=== PATIENT | female | born 1990 | race Caucasian/White ===

== ENCOUNTER 2022-07-15 10:02 | Emergency (ER) | payer MEDICAID ==
[~2022-07-15] VITALS: Ht 162.6 cm; Wt 95.3 kg
[2022-07-15 10:05] VITALS: BP_SYST 116
--- NOTE | 2022-07-15 10:10 | NUR ---
Patient triaged and placed in waiting room. VSS and patient appears in no acute distress at this time. Accompanied by SELF, awaiting available bed, and MD notified of need for MSE.
--- NOTE | 2022-07-15 11:24 | NUR ---
DR CRAVEN OUT TO TRIAGE ROOM FOR EVALUATION
[2022-07-15 11:59] LABS: BASOPHILS # (AUTO) 0.1 K/uL (0.0-0.2); EOSINOPHILS # (AUTO) 0.3 K/uL (0.0-0.4); EOSINOPHILS % (AUTO) 3.1 % (0.0-4.0); HEMATOCRIT 37.5 % (36-48); LYMPHOCYTES # (AUTO) 2.5 K/uL (1.0-5.5); LYMPHOCYTES % (AUTO) 29.4 % (20.5-51.5); MEAN CORPUSCULAR HEMOGLOBIN 25 pg (27-31); MEAN CORPUSCULAR HGB CONC 32 % (32-36); MEAN CORPUSCULAR VOLUME 77 fL (79.0-98.0); MONOCYTES # (AUTO) 0.5 K/uL (0.0-1.0); MONOCYTES % (AUTO) 6.4 % (1.7-9.3); NEUTROPHILS # (AUTO) 5.1 K/uL (1.8-7.7); NEUTROPHILS % (AUTO) 60.1 % (40.0-70.0); PLATELET COUNT (AUTO) 319 K/uL (130-430); RED BLOOD CELL COUNT(AUTO) 4.87 MIL/uL (4.2-6.2); RED CELL DISTRIBUTION WIDTH 16.1 % (9.0-15.0); WHITE BLOOD COUNT (AUTO) 8.6 K/uL (4.8-10.8)
[2022-07-15 12:21] LABS: ANION GAP 8 (5-15); CALCIUM 8.4 mg/dL (8.4-11.0); CHLORIDE 100 mmol/L (98-107); CREATININE 0.82 mg/dL (0.55-1.30); GLUCOSE 90 mg/dL (70-99); UREA NITROGEN, BLOOD 12 mg/dL (8-21)
[2022-07-15 12:24] LABS: GFR AFRICAN AMERICAN 103 mL/min (>90)
[2022-07-15 12:28] LABS: ALANINE AMINOTRANSFERASE 12 U/L (12-78); ALBUMIN 3.3 g/dL (3.4-4.8); ASPARTATE AMINOTRANSFERASE 17 U/L (10-37); C-REACTIVE PROTEIN QUANT 0.5 mg/dL (0-0.5); TOTAL BILIRUBIN 0.3 mg/dL (0.0-1.0)
[2022-07-15 13:03] LABS: ERYTHROCYTE SEDIMENTATION RATE 37 MM/HR (0-20)
--- NOTE | 2022-07-15 13:10 | NUR ---
PT AWAITING TEST RESULTS
--- NOTE | 2022-07-15 13:40 | NUR ---
DR CRAVEN OUT TO TRIAGE ROOM FOR RE-EVAL
[2022-07-15] MEDS ORDERED: IBUP-1969 PO (14:02)
[2022-07-15] MEDS ORDERED: ACYC400T19 PO (14:02)
[2022-07-15] MEDS ORDERED: HYDR-3917 PO (14:02)
--- NOTE | 2022-07-15 14:10 | NUR ---
Patient given written and verbal discharge instructions and verbalizes understanding. ER MD discussed with patient the results and treatment provided. Patient in stable condition. ID arm band removed. Rx of ACYCLOVIR, NORCO, IBUPROFEN given. Patient educated on pain management and to follow up with PMD. Pain Scale 0/10. Opportunity for questions provided and answered. Medication side effect fact sheet provided.
== END 2022-07-15 14:10 | disposition home or self-care (01) ==
LOC: SED 10:02
DX: G62.9 Polyneuropathy, unspecified (principal); R21 Rash and other nonspecific skin eruption; M79.631 Pain in right forearm; Z88.6 Allergy status to analgesic agent; Z79.899 Other long term (current) drug therapy
CPT/HCPCS: 36415; 70450-TC; 76376; 80053; 84484; 84550; 84703; 85025; 85651-TC; 86140; 99284